=== PATIENT | female | born 1985 | race Caucasian/White ===

== ENCOUNTER 2021-02-03 12:05 | Emergency (ER) | payer BC ==
[~2021-02-03] VITALS: Ht 165.1 cm; Wt 61.2 kg
[2021-02-03 12:22] VITALS: Ht 165.1 cm; Wt 61.2 kg
[2021-02-03 13:05] LABS: microscopic required? NO
[2021-02-03 13:12] LABS: UA SPECIFIC GRAVITY 1.015 (1.005-1.035); urine erythrocyte NEGATIVE (NEGATIVE)
[2021-02-03 13:12] LABS: BASOPHIL % 0.4 % (0.2-1.3); PLATELET COUNT 213 x10^3mcL (179-408); RED CELL DISTRIBUTION WIDTH 12.7 % (12.3-17.7)
[2021-02-03 15:31] VITALS: BP 101/67
== END 2021-02-03 15:31 | disposition left against medical advice (07) ==
LOC: ED 12:05
PROVIDERS: Student in an Organized Health Care Education/Training Program
DX: O20.0 Threatened abortion (principal); Z3A.11 11 weeks gestation of pregnancy